=== PATIENT | male | born 1955 | race Caucasian/White ===

== ENCOUNTER 2017-05-25 12:06 | Observation (INO) | payer MEDICAID, OTHER ==
[2017-05-25] MEDS ORDERED: Sodium Chloride 0.9% 1,000 ML IV STA (12:54)
[2017-05-25 13:03] VITALS: BMI 22.6
--- NOTE | 2017-05-25 13:53 | ED PDOC ---
Arrival/HPI - General Chief Complaint: Abdominal Pain Time Seen by Provider: 05/25/17 12:13 Historian: Patient, Family (son) - History of Present Illness Narrative History of Present Illness (Text): 05/25/17 12:45 Connie Connell is a 61 year old male, who presents to the Emergency department accompanied by his son complaining of stomach pain. Patient reports that on November he noticed blood in stool, but then it went away until two days ago he saw blood again and decided to come to the Emergency department. He states having right upper quadrant abd pain and dizziness. Patient denies any chest pain, shortness of breath, headache, fever, chills, cough, nausea, vomiting, diarrhea, changes in bowel habits, dysuria, hematuria, frequency, flank pain, or other complaints. PMD: None Time/Duration: Other (2 days ago) Symptom Onset: Sudden Symptom Course: Unchanged Modifying Factors (Text): Dizziness with motion Context: Home Associated Symptoms (Text): dizziness and top abdominal pain Past Medical History - Provider Review Nursing Documentation Reviewed: Yes - Cardiac Hx Hypertension: Yes - Psychiatric Hx Substance Use: No Family/Social History - Physician Review Nursing Documentation Reviewed: Yes Family/Social History: Unknown Family HX Smoking Status: previous heavy smoker Hx Alcohol Use: No Hx Substance Use: No Allergies/Home Meds Allergies/Adverse Reactions: Allergies No Known Allergies Allergy (Verified 05/25/17 12:24) Home Medications: Home Meds Medication Instructions Recorded Confirmed Omeprazole [Omeprazole] 40 mg PO DAILY 08/24/16 05/25/17 amLODIPine [Norvasc] 10 mg PO DAILY 08/24/16 05/25/17 Review of Systems - Physician Review All systems were reviewed & negative as marked: Yes - Review of Systems Constitutional: Normal. absent: Fevers Eyes: Normal. absent: Vision Changes ENT: Normal Respiratory: Normal. absent: SOB, Cough Cardiovascular: Normal. absent: Chest Pain Gastrointestinal: Abdominal Pain, Hematochezia, Other. absent: Diarrhea, Nausea , Vomiting Genitourinary Male: Normal. absent: Dysuria Musculoskeletal: Normal Skin: Normal Neurological: Dizziness (with movement). absent: Headache Endocrine: Normal. absent: Diaphoresis Hemo/Lymphatic: Normal Psychiatric: Normal Physical Exam Vital Signs Reviewed: Yes Vital Signs Temp Pulse Resp BP Pulse Ox 05/25/17 18:00 46 L 18 115/73 98 05/25/17 16:00 44 L 18 116/78 99 05/25/17 14:07 48 L 18 110/59 L 98 05/25/17 12:19 98.1 F 54 L 18 119/65 98 Temperature: Afebrile Blood Pressure: Normal Pulse: Bradycardic Respiratory Rate: Normal Appearance: Positive for: Well-Appearing, Non-Toxic, Comfortable Pain Distress: None Mental Status: Positive for: Alert and Oriented X 3 - Systems Exam Head: Present: Atraumatic, Normocephalic Pupils: Present: PERRL Conjunctiva: Present: Normal Mouth: Present: Moist Mucous Membranes Pharnyx: Present: Normal. No: ERYTHEMA Neck: Present: Normal Range of Motion Respiratory/Chest: Present: Clear to Auscultation, Good Air Exchange. No: Respiratory Distress, Accessory Muscle Use Cardiovascular: Present: Regular Rate and Rhythm, Normal S1, S2. No: Murmurs Abdomen: Present: Normal Bowel Sounds. No: Tenderness, Distention, Peritoneal Signs Rectal: Present: Hemorrhoids (small external hemorrhoid ), Other (stool is brown , trace heme positive) Upper Extremity: Present: Normal Inspection. No: Cyanosis, Edema Lower Extremity: Present: Normal Inspection. No: Edema Neurological: Present: GCS=15, CN II-XII Intact, Speech Normal Skin: Present: Warm, Dry, Normal Color. No: Rashes Psychiatric: Present: Alert, Oriented x 3, Normal Insight, Normal Concentration Medical Decision Making ED Course and Treatment: 05/25/17 12:45 Impression: 61 year old male with abdominal pain and bloody stools. Bradycardia is noted. Differential Diagnosis included but are not limited to: diverticulitis vs. external or internal hemorrhoid vs. constipation vs. mass Plan: -- EKG -- CT abdomen/pelvis with PO and IV contrast dye -- Urinalysis -- Labs -- Sodium Chloride -- Reassess and disposition Progress notes: EKG: sinus bradycardia @ 39; MARTA 1/2 mm inferiorly with mild NH depression v4-v6 05/25/17 19:[address]: Creator : EV RM FINDINGS: Lower thorax: Heart size is normal there is right subcarinal adenopathy. There may be left hilar adenopathy. There is atelectasis and scarring at the lung bases. There is a lingular granuloma, unchanged ABDOMEN: Liver: There are multiple hepatic cysts. There are additional low attenuation hepatic lesions too small to characterize. Gallbladder and bile ducts: unremarkable Pancreas: unremarkable Spleen: Spleen is unremarkable. There is an accessory spleen in the left upper quadrant. Adrenals: unremarkable Kidneys and ureters: unremarkable Stomach and bowel: Stomach is incompletely distended which accentuates the gastric wall.Bowel rotation is normal.There is no obstruction. Terminal ileum is unremarkable. Appendix is unremarkable. There is moderate stool contrast and air in the colon. Appendix: See stomach and bowel PELVIS: Bladder: Bladder is partially distended. There is mild bladder wall thickening. There is a nodular focus in the base of the bladder. Reproductive: The prostate is enlarged. Seminal vesicles have the expected configuration. ABDOMEN and PELVIS: Intraperitoneal space: There is no free air.There is no free fluid. Bones/joints: There are degenerative changes in the osseus structures. Soft tissues: unremarkable Vasculature: There are vascular calcifications. Lymph nodes: There is no pathologic adenopathy. IMPRESSION: No acute solid visceral or bowel abnormality; mildly enlarged prostate with bladder wall thickening; small hyperdense nodule in the base of the bladder, prostate versus bladder lesion Additional findings as described above. 05/25/17 20:25 Patient with noted history with bradycardia with heart rate as low as the 30s; ekg with heart rate of 39. Blood work is unremarkable. He is guaiac positive also. CT a/p with noted prostatic vs bladder lesion, and patient has a smoking history; urine also shows RBCs. Patient will need urology evaluation for cystoscopy to r/o bladder malignancy. Will need observation on tele, given the bradycardia (he is not on a beta-ulises or other AV yesenia blocking agent) - will place cardiology consult and urology consult. 05/25/17 20:[address] Cobb for placement on tele. - Lab Interpretations Lab Results: 05/25/17 14:15 05/25/17 14:15 Lab Results 05/25/17 14:55: Urine Color Yellow, Urine Appearance Clear, Urine pH 6.0, Ur Specific [place] 1.025, Urine Protein Negative, Urine Glucose (UA) Negative, Urine Ketones Negative, Urine Blood Small H, Urine Nitrate Negative, Urine Bilirubin Negative, Urine Urobilinogen 0.2, Ur Leukocyte Esterase Negative, Urine RBC 10 - 15, Urine WBC 5 - 10, Ur Epithelial Cells 6 - 8 05/25/17 14:15: Lactate Dehydrogenase 380, Total Creatine Kinase 119, Troponin I < 0.01 05/25/17 14:15: Sodium 139, Potassium 4.6, Chloride 105, Carbon Dioxide 27, Anion Gap 12, BUN 10, Creatinine 0.8, Est GFR ( Amer) > 60, Est GFR (Non- Af Amer) > 60, Random Glucose 89, Calcium 9.5, Total Bilirubin 0.6, AST 18, ALT 27, Alkaline Phosphatase 51, Total Protein 6.6, Albumin 3.7, Globulin 2.9, Albumin/Globulin Ratio 1.3, Amylase 66, Lipase 127 05/25/17 14:15: PT 11.4, INR 1.06, APTT 26.7 05/25/17 14:15: WBC 6.8, RBC 4.48, Hgb 13.3 L, Hct 39.9 L, MCV 89.1, MCH 29.7, MCHC 33.3, RDW 13.6, Plt Count 242, MPV 11.2 H, Gran % 48.1 L, Lymph % (Auto) 35.3 H, Mcmullen % (Auto) 8.6 H, Eos % (Auto) 7.7 H, Baso % (Auto) 0.3, Gran # 3.25 , Lymph # 2.4, Mcmullen # 0.6, Eos # 0.5, Baso # 0.02 I have reviewed the lab results: Yes - RAD Interpretation Radiology Orders: 05/25/17 12:53 ABD PELVIS PO & IV CONTRAST [CT] Stat Sharples Machine Operator: ED Physician - Medication Orders Current Medication Orders: Discontinued Medications Sodium Chloride (Sodium Chloride 0.9%) 1,000 mls @ 999 mls/hr IV .Q1H1M STA Stop: 05/25/17 13:54 Last Admin: 05/25/17 14:20 Dose: 999 mls/hr Iohexol (Omnipaque 240 (50 Ml)) Confirm Administered Dose 50 ml .ROUTE .STK-MED ONE Stop: 05/25/17 15:34 Iohexol (Omnipaque 350 100 Ml) Confirm Administered Dose 350 mg .ROUTE .STK-MED ONE Stop: 05/25/17 17:55 - Scribe Statement The provider has reviewed the documentation as recorded by the Scribe 05/25/2017 Astrid Cody All medical record entries made by the Scribe were at my direction and personally dictated by me. I have reviewed the chart and agree that the record accurately reflects my personal performance of the history, physical exam, medical decision making, and the department course for this patient. I have also personally directed, reviewed, and agree with the discharge instructions and disposition. Disposition/Present on Arrival - Present on Arrival Any Indicators Present on Arrival: No History of DVT/PE: No History of Uncontrolled Diabetes: No Urinary Catheter: No History of Decub. Ulcer: No History Surgical Site Infection Following: None - Disposition Have Diagnosis and Disposition been Completed?: Yes Diagnosis: Microscopic hematuria, Bradycardia, Dizziness, Bloody stools Disposition: HOSPITALIZED Disposition Time: 16:43 Patient Plan: Observation, Telemetry Patient Problems: Current Active Problems Problem Status Onset Bradycardia Acute Dizziness Acute Microscopic hematuria Acute Condition: FAIR Referrals: PCP,NO [Primary Care Provider] - Follow up with primary
[2017-05-25 14:28] LABS: BASO # 0.02 K/mm3 (0.0-2.0); BASO % 0.3 % (0.0-3.0); EOS # 0.5 (0.0-0.7); EOS % 7.7 % (1.5-5.0); GRAN # 3.25 (1.4-6.5); GRAN % 48.1 % (50.0-68.0); HEMOGLOBIN 13.3 gm/dL (14.0-18.0); LYMPH # 2.4 (1.2-3.4); LYMPH % 35.3 % (22.0-35.0); MEAN CELL VOLUME 89.1 fL (80.0-105.0); MEAN CORPUSCULAR HEMOGLOBIN 29.7 pg (25.0-35.0); MEAN CORPUSCULAR HGB CONC 33.3 g/dl (31.0-37.0); MEAN PLATELET VOLUME 11.2 fl (7.0-11.0); MONO # 0.6 (0.1-0.6); MONO % 8.6 % (1.0-6.0); PLATELET COUNT 242 10^3/uL (120.0-450.0); RBC 4.48 10^6/uL (3.5-6.1); RED CELL DISTRIBUTION WIDTH 13.6 % (11.5-14.5); WHITE BLOOD COUNT 6.8 10^3/ul (4.5-11.0)
[2017-05-25 14:37] LABS: ALB/GLOB RATIO 1.3 (1.1-1.8); ALBUMIN 3.7 g/dL (3.0-4.8); ALT/SGPT 27 U/L (7-56); AMYLASE 66 U/L (35-125); AST/SGOT 18 U/L (15-59); BLOOD UREA NITROGEN 10 mg/dL (7-21); CALCIUM 9.5 mg/dL (8.4-10.5); GFR AFRICAN-AMERICAN > 60; GFR NON-AFRICAN AMERICAN > 60; LIPASE 127 U/L (23-300)
[2017-05-25 14:41] LABS: TROPONIN I < 0.01 ng/mL
[2017-05-25 14:52] LABS: INR 1.06 (0.93-1.08); PARTIAL THROMBOPLASTIN TIME 26.7 Seconds (23.7-30.8); PROTHROMBIN TIME 11.4 Seconds (9.9-11.8)
[2017-05-25] MEDS ORDERED: Iohexol 240 (50 ml) ONE (15:33)
[2017-05-25 15:41] LABS: URINE BILIRUBIN NEGATIVE (NEGATIVE); URINE BLOOD SMALL (NEGATIVE); URINE GLUCOSE (UA) NEGATIVE (NEGATIVE); URINE LEUKOCYTE ESTERASE NEGATIVE Leu/uL (NEGATIVE); URINE NITRATE NEGATIVE (NEGATIVE); URINE PROTEIN NEGATIVE mg/dL (<30 mg/dL); URINE UROBILINOGEN 0.2 E.U./dL (<1 E.U./dL)
[2017-05-25 15:47] LABS: URINE APPEARANCE CLEAR (CLEAR); URINE COLOR YELLOW (YELLOW)
[2017-05-25] MEDS ORDERED: Iohexol 350 MG/100 ML VIAL ONE (17:54)
--- NOTE | 2017-05-25 19:05 | CT ---
EXAM: CT Abdomen and Pelvis With Intravenous Contrast CLINICAL HISTORY: 61 years old, male; Pain; Abdominal pain; Patient HX: Rectal bleeding TECHNIQUE: Axial computed tomography images of the abdomen and pelvis with intravenous contrast. This CT exam was performed using one or more of the following dose reduction techniques: automated exposure control, adjustment of the mA and/or kV according to patient size, and/or use of iterative reconstruction technique. Coronal and sagittal reformatted images were created and reviewed. CONTRAST: 96 mL of OMNIPAQUE 350 administered intravenously. EXAM DATE/TIME: 05/25/2017 12:53 PM COMPARISON: CT - ABD PELVIS W/O PO OR IV CONT 10/14/2015 3:09:26 PM FINDINGS: Lower thorax: Heart size is normal there is right subcarinal adenopathy. There may be left hilar adenopathy. There is atelectasis and scarring at the lung bases. There is a lingular granuloma, unchanged ABDOMEN: Liver: There are multiple hepatic cysts. There are additional low attenuation hepatic lesions too small to characterize. Gallbladder and bile ducts: unremarkable Pancreas: unremarkable Spleen: Spleen is unremarkable. There is an accessory spleen in the left upper quadrant. Adrenals: unremarkable Kidneys and ureters: unremarkable Stomach and bowel: Stomach is incompletely distended which accentuates the gastric wall.Bowel rotation is normal.There is no obstruction. Terminal ileum is unremarkable. Appendix is unremarkable. There is moderate stool contrast and air in the colon. Appendix: See stomach and bowel PELVIS: Bladder: Bladder is partially distended. There is mild bladder wall thickening. There is a nodular focus in the base of the bladder. Reproductive: The prostate is enlarged. Seminal vesicles have the expected configuration. ABDOMEN and PELVIS: Intraperitoneal space: There is no free air.There is no free fluid. Bones/joints: There are degenerative changes in the osseus structures. Soft tissues: unremarkable Vasculature: There are vascular calcifications. Lymph nodes: There is no pathologic adenopathy. IMPRESSION: No acute solid visceral or bowel abnormality; mildly enlarged prostate with bladder wall thickening; small hyperdense nodule in the base of the bladder, prostate versus bladder lesion Additional findings as described above.
--- NOTE | 2017-05-25 23:52 | CP.PCM.HP ---
<KATIANA ZARAGOZA - Last Filed: 05/26/17 06:51> History of Present Illness - History of Present Illness History of Present Illness: Katiana Zaragoza DO PGY1 - Internal Medicine H&P - Night Float CC: Bloody stools HPI: 61 yo M with PMH of HTN, GERD, and an unknown arrythmia, who presented to [facility] ED for bloody stools, now bright red blood per rectum. First bloody stool was in November. Recently, occurred 4 times in the past two days. He also admits to RUQ abdominal pain, 20 lbs weight loss in the past month, CP with exertion, FOSS, muscle cramps, and constipation. He denies N/V, F/C, and diarrhea. PMH: HTN, GERD, unknown arrythmia PSH: None Meds: Reviewed Soc: Tobacco, current smoker, 20 PYH. Denies EtOH. Denies illicits. FHx: None Allergies: NKDA Present on Admission - Present on Admission Any Indicators Present on Admission: No Review of Systems - Review of Systems Systems not reviewed;Unavailable: Language Barrier - Constitutional Constitutional: Anorexia, Fatigue, Headache, Weight Loss. absent: Chills, Fever - EENT Eyes: absent: Blurred Vision, Change in Vision Ears: absent: Decreased Hearing, Ear Pain Nose/Mouth/Throat: absent: Epistaxis, Nasal Congestion - Cardiovascular Cardiovascular: Chest Pain, Dyspnea on Exertion, Palpitations, Slow Heart Rate. absent: Diaphoresis, Pain Radiating to Arm/Neck/Jaw Additional comments: Baseline bradycardia. Normal chronotropic response. - Respiratory Respiratory: absent: Cough, Dyspnea, Hemoptysis - Gastrointestinal Gastrointestinal: Abdominal Pain, Constipation, Hematochezia. absent: Coffee Ground Emesis, Hematemesis, Melena - Genitourinary Genitourinary: absent: Dysuria, Hematuria, Urinary Frequency - Musculoskeletal Musculoskeletal: absent: Arthralgias, Myalgias - Integumentary Integumentary: absent: Pruritus, Rash - Hematologic/Lymphatic Hematologic: absent: Easy Bleeding, Easy Bruising Past Patient History - Past Social History Smoking Status: previous heavy smoker - CARDIAC Hx Hypertension: Yes - PSYCHIATRIC Hx Substance Use: No - SURGICAL HISTORY Hx Surgeries: No (unknown) Meds Allergies/Adverse Reactions: Allergies Allergy/AdvReac Type Severity Reaction Status Date / Time No Known Allergies Allergy Verified 05/25/17 12:24 Physical Exam - Constitutional Appears: Non-toxic, No Acute Distress, Chronically Ill - Head Exam Head Exam: ATRAUMATIC, NORMOCEPHALIC - Eye Exam Eye Exam: EOMI, Normal appearance - ENT Exam ENT Exam: Mucous Membranes Moist - Neck Exam Neck exam: Positive for: Normal Inspection. Negative for: Lymphadenopathy, Meningismus, Thyromegaly - Respiratory Exam Respiratory Exam: Clear to Auscultation Bilateral. absent: Rales, Rhonchi, Wheezes - Cardiovascular Exam Cardiovascular Exam: RRR, +S1, +S2 - GI/Abdominal Exam GI & Abdominal Exam: Normal Bowel Sounds, Tenderness (mild RUQ) - Extremities Exam Extremities exam: Positive for: normal inspection, pedal edema - Back Exam Back exam: NORMAL INSPECTION - Neurological Exam Neurological exam: Alert, Oriented x3 - Psychiatric Exam Psychiatric exam: Normal Affect, Normal Mood - Skin Skin Exam: Dry, Intact Results - Vital Signs Recent Vital Signs: Last Vital Signs Temp 98.7 F 05/25/17 21:00 Pulse 44 L 05/25/17 21:00 Resp 17 05/25/17 21:00 BP 118/69 05/25/17 21:00 Pulse Ox 98 05/25/17 21:00 - Labs Result Diagrams: 05/25/17 14:15 05/25/17 14:15 Assessment & Plan - Assessment and Plan (Free Text) Assessment: 61 yo M with PMH of HTN, GERD, and an unknown arrythmia, who presented to [facility] ED for bloody stools, now bright red blood per rectum. Also bradycardic. Plan: 1. GI bleed - 2/2 GI mass vs infection - Abdomen and Pelvis CT impression: No acute solid visceral or bowel abnormality ; mildly enlarged prostate with bladder wall thickening; small hyperdense nodule in the base of the bladder, prostate versus bladder lesion - Patient is hemodynamically stable - Consult Urology (Leanne) for bladder/prostate lesion - Order abdominal US for RUQ pain to evaluate for cholecystitis - Check stool for occult blood 2. Bradycardia - Currently asymptomatic, first troponin negative - Check A1c, Lipid panel, TSH, repeat troponins and EKG - [facility] - Patient in telemetry for observation 3. HTN - Resume home meds GI/DVT prophylaxis - Protonix 40mg IV and SCD Patient seen, discussed, and reviewed with attending Dr. Cobb <Jordyn SNYDER,[facility] - Last Filed: 05/26/17 08:11> Results - Vital Signs Recent Vital Signs: Last Vital Signs Temp 98.4 F 05/26/17 06:00 Pulse 59 L 05/26/17 06:00 Resp 18 05/26/17 06:00 BP 119/72 05/26/17 06:00 Pulse Ox 97 05/26/17 06:00 - Labs Result Diagrams: 05/25/17 14:15 05/25/17 14:15 Labs: Laboratory Results - last 24 hr 05/25/17 23:45 Troponin I < 0.01 Attending/Attestation - Attestation I have personally seen and examined this patient.: Yes I have fully participated in the care of the patient.: Yes I have reviewed all pertinent clinical information: Yes Notes (Text): 05/26/17 08:04 -I agree with the above H&P completed by the resident physician with the following additions and/or changes: The patient is a 61 year old man with a history of an unknown arrhythmia and HTN , who is being admitted for multiple acute issues including, BRBPR, hematura ( with bladder vs prostate nodule noted on CT-scan) and asymptomatic sinus bradycardia. As a result, urology, GI and cardiology consults have been placed and the patient will be kept NPO. Serial trop's and EKG's will also be checked. Lastly, Protonix 40mg IV BID will be started. Of note, rectal exam done by the ED physician showed hemorrhoids, which could be the cause of the patient's BRBPR. Also of note, the patient has a long past history of tobacco use and reports recent unintentional weight loss.
[2017-05-26] MEDS ORDERED: Pantoprazole 40 mg EC Tab PO SCH (06:00)
[2017-05-26] MEDS ORDERED: Sodium Chloride 0.9% 1,000 ML IV SCH (06:00)
[2017-05-26 06:49] VITALS: RESP 18; O2SAT 97
[2017-05-26 08:05] LABS: BASO # 0.03 K/mm3 (0.0-2.0); BASO % 0.4 % (0.0-3.0); EOS # 0.5 (0.0-0.7); EOS % 7.7 % (1.5-5.0); GRAN # 3.51 (1.4-6.5); GRAN % 51.8 % (50.0-68.0); LYMPH # 2.3 (1.2-3.4); LYMPH % 33.7 % (22.0-35.0); MEAN CELL VOLUME 88.8 fL (80.0-105.0); MEAN CORPUSCULAR HGB CONC 32.7 g/dl (31.0-37.0); MEAN PLATELET VOLUME 11.4 fl (7.0-11.0); MONO # 0.4 (0.1-0.6); MONO % 6.4 % (1.0-6.0); PLATELET COUNT 238 10^3/uL (120.0-450.0); RBC 4.48 10^6/uL (3.5-6.1); RED CELL DISTRIBUTION WIDTH 13.6 % (11.5-14.5); WHITE BLOOD COUNT 6.8 10^3/ul (4.5-11.0)
[2017-05-26 08:23] LABS: ALB/GLOB RATIO 1.2 (1.1-1.8); ALBUMIN 3.6 g/dL (3.0-4.8); ALT/SGPT 27 U/L (7-56); AST/SGOT 19 U/L (15-59); BLOOD UREA NITROGEN 11 mg/dL (7-21); CALCIUM 8.6 mg/dL (8.4-10.5); GFR AFRICAN-AMERICAN > 60; GFR NON-AFRICAN AMERICAN > 60; HDL CHOLESTEROL 23 mg/dL (29-60); TROPONIN I < 0.01 ng/mL
[2017-05-26 08:34] LABS: LDL CHOLESTEROL 111 mg/dL (0-129)
--- NOTE | 2017-05-26 10:19 | CARD ---
APPROVED REPORT EKG Measurement Heart [id number] FL [id number] <Conclusion> Marked sinus bradycardia Abnormal ECG
--- NOTE | 2017-05-26 10:27 | CARD ---
APPROVED REPORT EKG Measurement Heart [id number] ID [id number] <Conclusion> Poor data quality, interpretation may be adversely affected Marked sinus bradycardia Abnormal ECG
--- NOTE | 2017-05-26 16:19 | US ---
HISTORY: evaluate for cholecystitis COMPARISON: Comparison made with abdominal ultrasound 11/28/[address] scan abdomen and pelvis dated 05/11. TECHNIQUE: Sonographic evaluation of the abdomen. FINDINGS: LIVER: Measures approximately 12.5 cm in greatest CC dimension however note that liver measured approximately 16 cm in CC dimension on prior CT scan abdomen pelvis cm. Liver demonstrates smooth contour however increased echogenicity likely due to fatty infiltration. Of multiple cysts seen on prior CT scan only 1 cyst is visible on this exam which is located in the right lobe liver measuring approximately 1.74 cm in greatest dimension. Please refer to CT scan abdomen pelvis for additional details. GALLBLADDER: The gallbladder is incompletely distended which may account for thick-walled appearance. No evidence of intraluminal gallbladder calculi. No pericholecystic fluid collections or sonographic Martin sign. COMMON BILE DUCT: Measures 3.2 mm . No stones. No dilatation. PANCREAS: Pancreas poorly delineated due to body habitus and bowel gas RIGHT KIDNEY: Measures approximately 9.9 x 5.5 x 5.2cm. Normal echogenicity. No calculus, mass, or hydronephrosis. LEFT KIDNEY: Measures 10.1 x 5.8 x 5.1cm. Normal echogenicity. No calculus, mass, or hydronephrosis. SPLEEN: Normal in size and contour. No mass. AORTA: No aneurysmal dilatation. IVC: Unremarkable. OTHER FINDINGS: None. IMPRESSION: Fatty hepatic infiltration. Multiple hepatic cysts visible on prior CT scan however only 1 of the cysts in the right lobe are visible on the current ultrasound. This cyst measures approximately 0.74 cm in greatest dimension.
--- NOTE | 2017-05-26 16:49 | CP.PCM.PN ---
Subjective - Date & Time of Evaluation Date of Evaluation: 05/26/17 Time of Evaluation: 16:47 - Subjective Subjective: Patient has been seen and examined. Patient denies any worsening abdominal pain. He complains of pain during urination and straining to pee. He denies any fever, chills, SOB, N/V/D. Objective - Vital Signs/Intake and Output Vital Signs (last 24 hours): Temp Pulse Resp BP Pulse Ox 97.8 F 54 L 18 111/62 97 05/26/17 11:54 05/26/17 14:00 05/26/17 11:54 05/26/17 11:54 05/26/17 06:00 Intake and Output: 05/26/17 05/26/17 06:59 18:59 Intake Total 700 Output Total 4 Balance 696 - Medications Medications: Current Medications Pantoprazole Sodium (Protonix Inj) 40 mg IVP Q12 ALICE Last Admin: 05/26/17 10:49 Dose: 40 mg - Labs Labs: 05/26/17 07:46 05/26/17 07:46 PT 11.4 Seconds (9.9-11.8) 05/25/17 14:15 INR 1.06 (0.93-1.08) 05/25/17 14:15 APTT 26.7 Seconds (23.7-30.8) 05/25/17 14:15
[2017-05-26 17:12] LABS: URINE BILIRUBIN NEGATIVE (NEGATIVE); URINE BLOOD NEGATIVE (NEGATIVE); URINE GLUCOSE (UA) NEGATIVE (NEGATIVE); URINE LEUKOCYTE ESTERASE NEGATIVE Leu/uL (NEGATIVE); URINE NITRATE NEGATIVE (NEGATIVE); URINE PROTEIN NEGATIVE mg/dL (<30 mg/dL); URINE UROBILINOGEN 0.2 E.U./dL (<1 E.U./dL)
[2017-05-26 17:13] LABS: URINE APPEARANCE CLEAR (CLEAR); URINE COLOR STRAW (YELLOW)
[2017-05-26 17:25] VITALS: BP 108/67; TEMP 98.1
--- NOTE | 2017-05-26 18:49 | CP.PCM.DIS ---
<Callum Byrne - Last Filed: 05/26/17 19:31> Provider - Provider Date of Admission: 05/25/17 20:14 Attending physician: Masha Matos MD Primary care physician: NO PRIMARY CARE PROVIDER Consults: Cardio - Dr. Underwood Uro - Dr. Perdomo Time Spent in preparation of Discharge (in minutes): 40 Hospital Course - Lab Results Lab Results: Most Recent Lab Values WBC 6.8 10^3/ul (4.5-11.0) 05/26/17 07:46 RBC 4.48 10^6/uL (3.5-6.1) 05/26/17 07:46 Hgb 13.0 gm/dL (14.0-18.0) L 05/26/17 07:46 Hct 39.8 % (42.0-52.0) L 05/26/17 07:46 MCV 88.8 fL (80.0-105.0) 05/26/17 07:46 MCH 29.0 pg (25.0-35.0) 05/26/17 07:46 MCHC 32.7 g/dl (31.0-37.0) 05/26/17 07:46 RDW 13.6 % (11.5-14.5) 05/26/17 07:46 Plt Count 238 10^3/uL (120.0-450.0) 05/26/17 07:46 MPV 11.4 fl (7.0-11.0) H 05/26/17 07:46 Gran % 51.8 % (50.0-68.0) 05/26/17 07:46 Lymph % (Auto) 33.7 % (22.0-35.0) 05/26/17 07:46 Mitchell % (Auto) 6.4 % (1.0-6.0) H 05/26/17 07:46 Eos % (Auto) 7.7 % (1.5-5.0) H 05/26/17 07:46 Baso % (Auto) 0.4 % (0.0-3.0) 05/26/17 07:46 Gran # 3.51 (1.4-6.5) 05/26/17 07:46 Lymph # 2.3 (1.2-3.4) 05/26/17 07:46 Mitchell # 0.4 (0.1-0.6) 05/26/17 07:46 Eos # 0.5 (0.0-0.7) 05/26/17 07:46 Baso # 0.03 K/mm3 (0.0-2.0) 05/26/17 07:46 PT 11.4 Seconds (9.9-11.8) 05/25/17 14:15 INR 1.06 (0.93-1.08) 05/25/17 14:15 APTT 26.7 Seconds (23.7-30.8) 05/25/17 14:15 Sodium 139 mmol/L (132-148) 05/26/17 07:46 Potassium 4.2 mmol/L (3.6-5.0) 05/26/17 07:46 Chloride 108 mmol/L (98-107) H 05/26/17 07:46 Carbon Dioxide 25 mmol/L (21-33) 05/26/17 07:46 Anion Gap 10 (10-20) 05/26/17 07:46 BUN 11 mg/dL (7-21) 05/26/17 07:46 Creatinine 0.9 mg/dL (0.5-1.4) 05/26/17 07:46 Est GFR ( Amer) > 60 05/26/17 07:46 Est GFR (Non-Af Amer) > 60 05/26/17 07:46 Random Glucose 88 mg/dL (70-110) 05/26/17 07:46 Calcium 8.6 mg/dL (8.4-10.5) 05/26/17 07:46 Total Bilirubin 0.4 mg/dL (0.2-1.3) 05/26/17 07:46 AST 19 U/L (15-59) 05/26/17 07:46 ALT 27 U/L (7-56) 05/26/17 07:46 Alkaline Phosphatase 52 U/L (38-133) 05/26/17 07:46 Lactate Dehydrogenase 380 U/L (333-699) 05/25/17 14:15 Total Creatine Kinase 119 U/L (35-230) 05/25/17 14:15 Troponin I < 0.01 ng/mL 05/26/17 07:46 Total Protein 6.4 g/dL (5.8-8.3) 05/26/17 07:46 Albumin 3.6 g/dL (3.0-4.8) 05/26/17 07:46 Globulin 2.9 gm/dL 05/26/17 07:46 Albumin/Globulin Ratio 1.2 (1.1-1.8) 05/26/17 07:46 Triglycerides 226 mg/dL (35-160) H 05/26/17 07:46 Cholesterol 158 mg/dL (130-200) 05/26/17 07:46 LDL Cholesterol Direct 111 mg/dL (0-129) 05/26/17 07:46 HDL Cholesterol 23 mg/dL (29-60) L 05/26/17 07:46 Amylase 66 U/L (35-125) 05/25/17 14:15 Lipase 127 U/L (23-300) 05/25/17 14:15 TSH 3rd Generation 4.87 mIU/mL (0.46-4.68) H 05/26/17 07:46 Urine Color Straw (YELLOW) 05/26/17 15:00 Urine Appearance Clear (CLEAR) 05/26/17 15:00 Urine pH 7.0 (4.7-8.0) 05/26/17 15:00 Ur Specific [place] 1.010 (1.005-1.035) 05/26/17 15:00 Urine Protein Negative mg/dL (<30 mg/dL) 05/26/17 15:00 Urine Glucose (UA) Negative mg/dL (NEGATIVE) 05/26/17 15:00 Urine Ketones Negative mg/dL (NEGATIVE) 05/26/17 15:00 Urine Blood Negative (NEGATIVE) 05/26/17 15:00 Urine Nitrate Negative (NEGATIVE) 05/26/17 15:00 Urine Bilirubin Negative (NEGATIVE) 05/26/17 15:00 Urine Urobilinogen 0.2 E.U./dL (<1 E.U./dL) 05/26/17 15:00 Ur Leukocyte Esterase Negative Bakari/uL (NEGATIVE) 05/26/17 15:00 Urine RBC 10 - 15 /hpf (0-2) 05/25/17 14:55 Urine WBC 5 - 10 /hpf (0-6) 05/25/17 14:55 Ur Epithelial Cells 6 - 8 /hpf (0-5) 05/25/17 14:55 - Hospital Course Hospital Course: HPI: 61 yo M with PMH of HTN, GERD, and asymptomatic physiological bradycardia, who presented to [facility] ED for bloody stools, now bright red blood per rectum. Patient is hemodynamically stable. Bleeding likely 2/2 to hemorrhoids. EKG/ telemetry reading showed no pauses or blocks. Patient is to follow up with his PMD at [facility], Urology (Dr. Poornima Perdomo) and [facility] ( Dr. Yoder). His Norvasc has been stopped and was started on HCTZ and Colace outpatient. Patient is agreeable to plan and medications. The following studies were ordered: CT Abd/Pelvis No acute solid visceral or bowel abnormality; mildly enlarged prostate with bladder wall thickening; small hyperdence nodule in the base of the bladder. Prostate vs bladder lesion. US Impression: Fatty Hepatic infiltration, multiple hepatic cyst visible on prior CT scan Discharge Exam - Head Exam Head Exam: ATRAUMATIC, NORMOCEPHALIC - Respiratory Exam Respiratory Exam: Clear to PA & Lateral, NORMAL BREATHING PATTERN. absent: Rales, Rhonchi, Wheezes, Respiratory Distress, Stridor - Cardiovascular Exam Cardiovascular Exam: Bradycardia, REGULAR RHYTHM, +S1, +S2 - GI/Abdominal Exam GI & Abdominal Exam: Normal Bowel Sounds, Soft. absent: Tenderness - Extremities Exam Extremities exam: normal capillary refill - Psychiatric Exam Psychiatric exam: Normal Affect, Normal Mood Discharge Plan - Discharge Medications Prescriptions: Docusate [Colace] 100 mg PO BID #14 cap hydroCHLOROthiazide [Microzide] 12.5 mg PO DAILY #7 cap - Follow Up Plan Condition: FAIR Disposition: HOME/ ROUTINE Instructions: Gastrointestinal Bleeding (DC), Acute Abdominal Pain (GEN), Bradycardia (DC), Dizziness (GEN) Additional Instructions: Stop taking Norvasc Start Hydrochlorothiazide (HCtZ) Follow up with primary doctor at [facility] Follow up with Dr. Poornima Perdomo in office tomorrow. Follow up with Dr. Yoder in 48 hours for physiologic bradycardia. Take Colace 100mg twice a day for constipation. Drink plenty of fluids. Referrals: Poornima Perdomo MD [Staff Provider] - Masha Yoder MD [Staff Provider] - <May Mcdermott - Last Filed: 05/26/17 22:04> Provider - Provider Date of Admission: 05/25/17 20:14 Attending physician: Masha Matos MD Primary care physician: NO PRIMARY CARE PROVIDER Hospital Course - Lab Results Lab Results: Most Recent Lab Values WBC 6.8 10^3/ul (4.5-11.0) 05/26/17 07:46 RBC 4.48 10^6/uL (3.5-6.1) 05/26/17 07:46 Hgb 13.0 gm/dL (14.0-18.0) L 05/26/17 07:46 Hct 39.8 % (42.0-52.0) L 05/26/17 07:46 MCV 88.8 fL (80.0-105.0) 05/26/17 07:46 MCH 29.0 pg (25.0-35.0) 05/26/17 07:46 MCHC 32.7 g/dl (31.0-37.0) 05/26/17 07:46 RDW 13.6 % (11.5-14.5) 05/26/17 07:46 Plt Count 238 10^3/uL (120.0-450.0) 05/26/17 07:46 MPV 11.4 fl (7.0-11.0) H 05/26/17 07:46 Gran % 51.8 % (50.0-68.0) 05/26/17 07:46 Lymph % (Auto) 33.7 % (22.0-35.0) 05/26/17 07:46 Mitchell % (Auto) 6.4 % (1.0-6.0) H 05/26/17 07:46 Eos % (Auto) 7.7 % (1.5-5.0) H 05/26/17 07:46 Baso % (Auto) 0.4 % (0.0-3.0) 05/26/17 07:46 Gran # 3.51 (1.4-6.5) 05/26/17 07:46 Lymph # 2.3 (1.2-3.4) 05/26/17 07:46 Mitchell # 0.4 (0.1-0.6) 05/26/17 07:46 Eos # 0.5 (0.0-0.7) 05/26/17 07:46 Baso # 0.03 K/mm3 (0.0-2.0) 05/26/17 07:46 PT 11.4 Seconds (9.9-11.8) 05/25/17 14:15 INR 1.06 (0.93-1.08) 05/25/17 14:15 APTT 26.7 Seconds (23.7-30.8) 05/25/17 14:15 Sodium 139 mmol/L (132-148) 05/26/17 07:46 Potassium 4.2 mmol/L (3.6-5.0) 05/26/17 07:46 Chloride 108 mmol/L (98-107) H 05/26/17 07:46 Carbon Dioxide 25 mmol/L (21-33) 05/26/17 07:46 Anion Gap 10 (10-20) 05/26/17 07:46 BUN 11 mg/dL (7-21) 05/26/17 07:46 Creatinine 0.9 mg/dL (0.5-1.4) 05/26/17 07:46 Est GFR ( Amer) > 60 05/26/17 07:46 Est GFR (Non-Af Amer) > 60 05/26/17 07:46 Random Glucose 88 mg/dL (70-110) 05/26/17 07:46 Calcium 8.6 mg/dL (8.4-10.5) 05/26/17 07:46 Total Bilirubin 0.4 mg/dL (0.2-1.3) 05/26/17 07:46 AST 19 U/L (15-59) 05/26/17 07:46 ALT 27 U/L (7-56) 05/26/17 07:46 Alkaline Phosphatase 52 U/L (38-133) 05/26/17 07:46 Lactate Dehydrogenase 380 U/L (333-699) 05/25/17 14:15 Total Creatine Kinase 119 U/L (35-230) 05/25/17 14:15 Troponin I < 0.01 ng/mL 05/26/17 07:46 Total Protein 6.4 g/dL (5.8-8.3) 05/26/17 07:46 Albumin 3.6 g/dL (3.0-4.8) 05/26/17 07:46 Globulin 2.9 gm/dL 05/26/17 07:46 Albumin/Globulin Ratio 1.2 (1.1-1.8) 05/26/17 07:46 Triglycerides 226 mg/dL (35-160) H 05/26/17 07:46 Cholesterol 158 mg/dL (130-200) 05/26/17 07:46 LDL Cholesterol Direct 111 mg/dL (0-129) 05/26/17 07:46 HDL Cholesterol 23 mg/dL (29-60) L 05/26/17 07:46 Amylase 66 U/L (35-125) 05/25/17 14:15 Lipase 127 U/L (23-300) 05/25/17 14:15 TSH 3rd Generation 4.87 mIU/mL (0.46-4.68) H 05/26/17 07:46 Urine Color Straw (YELLOW) 05/26/17 15:00 Urine Appearance Clear (CLEAR) 05/26/17 15:00 Urine pH 7.0 (4.7-8.0) 05/26/17 15:00 Ur Specific [place] 1.010 (1.005-1.035) 05/26/17 15:00 Urine Protein Negative mg/dL (<30 mg/dL) 05/26/17 15:00 Urine Glucose (UA) Negative mg/dL (NEGATIVE) 05/26/17 15:00 Urine Ketones Negative mg/dL (NEGATIVE) 05/26/17 15:00 Urine Blood Negative (NEGATIVE) 05/26/17 15:00 Urine Nitrate Negative (NEGATIVE) 05/26/17 15:00 Urine Bilirubin Negative (NEGATIVE) 05/26/17 15:00 Urine Urobilinogen 0.2 E.U./dL (<1 E.U./dL) 05/26/17 15:00 Ur Leukocyte Esterase Negative Bakari/uL (NEGATIVE) 05/26/17 15:00 Urine RBC 10 - 15 /hpf (0-2) 05/25/17 14:55 Urine WBC 5 - 10 /hpf (0-6) 05/25/17 14:55 Ur Epithelial Cells 6 - 8 /hpf (0-5) 05/25/17 14:55 Attending/Attestation - Attestation I have personally seen and examined this patient.: Yes I have fully participated in the care of the patient.: Yes I have reviewed all pertinent clinical information, including history, physical exam and plan: Yes Notes (Text): 05/26/17 22:00 Patient seen and examined at bedside. vitals, labs, imaging and notes reviewed. H/H remains stable and no BRBPR, most probably secondary to hemarrhoids. GI consultaiton appreciated and high fiber diet, laxative support advised with outpatient follow up. microscopic hematuria and BPH with a small atypical nodule noted on CTAP, case d/w Urology and outpatient follow up in next 24 hours recommended , reports faxed to Urologist office for follow up. Long standing asymptomatic bradycardia noted , same findings in 2016 admission. No pauses, blocks noted on EKG and telemetry and patient remains totally asymptomatic. Advised follow up with cardiology as an outpatient in 48 hours for further evaluation. Patient's diet advanced which he tolerated without any issues. Discharged in hemodynamically stable condition, agree with the plan as outlined by the resident
[2017-05-26 19:31] VITALS: PULSE 66
--- NOTE | 2017-05-27 08:17 | CON ---
DATE: 05/26/2017 HISTORY OF PRESENT ILLNESS: I examined Mr. Connell this morning. He is a 61-year-old male with apparent history of hypertension, acid reflux, presented to the emergency room with complaints of abdominal pain and difficulty urinating. Note that the consult was called due to his history of some bright red blood per rectum, which occurred previously, but was self-limited. The patient has history of hemorrhoids. At the current time of point at the bedside, the patient indicates suprapubic discomfort, also some difficulty passing urine. He has not seen any urologists in the past. Since his hospital admission, there has been no rectal bleeding. No abdominal pain. No nausea, vomiting etc. PHYSICAL EXAMINATION: VITAL SIGNS: I reviewed the patient's vital signs. HEENT: Noncontributory. LUNGS: Clear to auscultation. HEART: Regular rhythm; however, the patient exhibits bradycardia with a heart rate somewhere in the range between 40 and 50. I reviewed this issue with the nurses on two occasions. LABORATORY DATA: I reviewed this patient's laboratory data. platelet count of 230 with an H and H of 13 and 39. Chemistry is significant for elevated triglycerides. ASA is not available. He had normal transaminases and bilirubin. His coagulation is within normal limits. I reviewed the CT images as well as the CT report. CT indicates multiple hepatic cysts. There is no biliary tract obstruction. Stomach appears within normal limits. There appears to be a bladder wall distension also by a nodule at the base of the bladder. The patient had an abdominal ultrasound today. Review of the PAC ultrasound indicates several access. Common bile duct is within normal limits. Gallbladder is noncontributory. Kidney is also noncontributory. I also reviewed the scan with the pulmonary function technician. Note that I reviewed this case with Dr. sam today. ASSESSMENT: This is a 61-year-old male admitted with complaints of urination and some suprapubic discomfort. Since he is exhibiting some degree of dysuria or difficulty passing urine, suggested a urology evaluation on the outside. Note that the CT scan was significant for some bladder wall thickening as well as a possible a nodule in the base of the bladder. Eval by urology with possibly a cystoscopy. Any further recommendations would be as per the house staff. As far as the rectal bleeding is concerned, patient indicated that his stools have been extremely hard in the past and he is not using any stool softener. This was discussed at length at the bedside. Also suggested [id number] suppositories in the form of Preparation H or Anusol, if ineffective one can always use Anusol HC for hemorrhoid related bleeding. At some time point the patient deserves a colonoscopic evaluation. The patient denies hematemesis. His hemoglobin is stable, therefore no acute GI bleed, therefore the patient does not warrant endoscopic evaluation at this time point. I will sign off the case. Renato Alfaro DO, PhD [email or web address]
== END 2017-05-26 20:31 | disposition home or self-care (01) ==
LOC: ED 12:06 → ERH 20:14 → 2RSO 21:23
PROVIDERS: ADMIT Internal Medicine; ATTEND Internal Medicine
DX: K64.9 Unspecified hemorrhoids (principal); K92.1 Melena; K21.9 Gastro-esophageal reflux disease without esophagitis; I10 Essential (primary) hypertension; N40.0 Benign prostatic hyperplasia without lower urinary tract symptoms; R31.29 Other microscopic hematuria; I49.9 Cardiac arrhythmia, unspecified; F17.200 Nicotine dependence, unspecified, uncomplicated; K76.89 Other specified diseases of liver; R42 Dizziness and giddiness; K59.00 Constipation, unspecified
CPT/HCPCS: 36415; 74177; 76700; 80053; 80061; 81001; 81003; 82150; 82550; 83036; 83615; 83690; 84443; 84484; 85025; 85610; 85730; 87086; 93005; 96360; 99285; C9113; G0378; J7040; Q9966; Q9967